=== PATIENT | female | born 2000 | race Asian ===

== ENCOUNTER 2018-12-07 21:38 | Emergency (ER) | payer SELFPAY ==
[2018-12-07 22:36] LABS: ABSOLUTE MONOCYTES (AUTO) 0.8 10^3/uL (0.1-1.4); ABSOLUTE NEUT (AUTO) 13.6 10^3/uL (1.7-8.2); BASOPHILS % (AUTO) 0.3 % (0-2); HEMATOCRIT 36.6 % (36.0-47.0); HEMOGLOBIN 11.6 g/dL (12.0-15.5); LYMPHOCYTES % (AUTO) 6.7 % (13-45); MEAN CORPUSCULAR HEMOGLOBIN 21.4 pg (27.0-33.4); MEAN CORPUSCULAR HGB CONC 31.6 g/dL (32.0-36.0); MEAN CORPUSCULAR VOLUME 68 fl (80-97); MONOCYTES % (AUTO) 5.4 % (3-13); PLATELET COUNT 248 10^3/uL (150-450); RED BLOOD COUNT 5.39 10^6/uL (3.72-5.28); SEGMENTED NEUTROPHILS % (AUTO) 87.6 % (42-78); TOTAL CELLS COUNTED % (AUTO) 100 %; WHITE BLOOD COUNT 15.5 10^3/uL (4.0-10.5)
[2018-12-07 22:41] LABS: APPEARANCE,URINE SLIGHTLY-CLOUDY; BILIRUBIN,URINE NEGATIVE (NEGATIVE); COLOR,URINE YELLOW; GLUCOSE, URINE 50 mg/dL (NEGATIVE); KETONES,URINE NEGATIVE (NEGATIVE); LEUKOCYTE ESTERASE,URINE TRACE (NEGATIVE); NITRITE,URINE NEGATIVE (NEGATIVE); PROTEIN,URINE NEGATIVE (NEGATIVE); URINE SPECIFIC GRAVITY 1.012; UROBILINOGEN,URINE NEGATIVE mg/dL (<2.0)
[2018-12-07 22:50] LABS: ALBUMIN 4.8 g/dL (3.5-5.0); ALKALINE PHOSPHATASE 73 U/L (38-126); ANION GAP 13 (5-19); ASPARTATE AMINO TRANSFERASE 30 U/L (14-36); BILIRUBIN,DIRECT 0.3 mg/dL (0.0-0.4); BILIRUBIN,TOTAL 0.9 mg/dL (0.2-1.3); BLOOD UREA NITROGEN 10 mg/dL (7-20); CALCIUM 9.9 mg/dL (8.4-10.2); CARBON DIOXIDE 20 mmol/L (22-30); CHLORIDE 103 mmol/L (98-107); GLUCOSE 120 mg/dL (75-110); POTASSIUM 3.9 mmol/L (3.6-5.0)
[2018-12-07] MEDS ORDERED: NORMAL SALINE 1000 ML 750 ML IV ONE (23:20)
[2018-12-07] MEDS ORDERED: KETOROLAC TROMETHAMINE INJ/PF 30 MG/1 ML SDV IV ONE (23:20)
[2018-12-07] MEDS ORDERED: ONDANSETRON HCL INJ/PF 4 MG/2 ML SDV IV ONE (23:20)
--- NOTE | 2018-12-07 23:59 | RADIOLOGY REPORT (SQ) ---
EXAM DESCRIPTION: XR ABDOMEN SUPINE AND ERECT WITH CHEST (ABD ACUTE SERIES) COMPLETED DATE/TME: 12/07/2018 23:19 CLINICAL HISTORY: 18 years, Female, Abdominal pain, constipation, leukocytosis, tachyc COMPARISON: EXAM DESCRIPTION: CLINICAL HISTORY: Abdominal pain, constipation, leukocytosis, tachyc COMPARISON: None FINDINGS: Frontal view of the chest and supine and upright images of the abdomen were submitted. Cardiac silhouette is within normal limits. There is no focal parenchymal or pleural disease. There is no free air in the abdomen. There is no evidence of bowel obstruction. IMPRESSION: No acute abnormalities. NUMBER OF VIEWS: TECHNIQUE: LIMITATIONS: None. FINDINGS: IMPRESSION: copyright 2010 [employer]- All Rights Reserved
[2018-12-08] MEDS ORDERED: CEFTRIAXONE 1 GM/D5W RTU 1 GM/50 ML RTUPB IV ONE (01:02)
--- NOTE | 2018-12-08 01:02 | ER Document Report ---
Entered by KYLAH MENDOZA SCRIBE 12/07/18 2315 Acting as scribe for:MICHAEL SORIANO MD ED General - General Chief Complaint: Abdominal Pain Stated Complaint: LOWER ABDOMINAL PAIN Time Seen by Provider: 12/07/18 23:01 Notes: Patient is a 18-year-old female presenting to the emergency department complaining of constipation. Patient states that she has been constipated for 3 days now. Patient states that she has been nauseous for 2 days now it has been intermittent. Patient states that she has not had a bowel movement in 2 days. Patient states that she has been experiencing burning urination that began at 2 030. Patient denies experiencing any fever. Patient states that her last menstrual period was November 11, 2018. TRAVEL OUTSIDE OF THE [place] IN LAST 30 DAYS: No - Related Data Allergies/Adverse Reactions: No Known Allergies Allergy (Verified 12/07/18 21:40) Past Medical History - General Information source: Patient - Social History Smoking Status: Never Smoker Cigarette use (# per day): No Chew tobacco use (# tins/day): No Smoking Education Provided: No Frequency of alcohol use: None Drug Abuse: None Family History: Reviewed & Not Pertinent Patient has suicidal ideation: No Patient has homicidal ideation: No Review of Systems - Review of Systems Constitutional: See HPI. denies: Fever EENT: No symptoms reported Cardiovascular: No symptoms reported Respiratory: No symptoms reported Gastrointestinal: See HPI, Nausea, Constipation Genitourinary: See HPI, Burning Female Genitourinary: No symptoms reported Musculoskeletal: No symptoms reported Skin: No symptoms reported Hematologic/Lymphatic: No symptoms reported Neurological/Psychological: No symptoms reported -: Yes All other systems reviewed and negative Physical Exam - Vital signs Vitals: Temp Pulse Resp BP Pulse Ox 99.1 F 116 H 18 117/78 100 12/07/18 22:01 12/07/18 22:01 12/07/18 22:01 12/07/18 22:01 12/07/18 22:01 - Notes Notes: PHYSICAL EXAMINATION: GENERAL: Well-appearing, well-nourished and in no acute distress. HEAD: Atraumatic, normocephalic. EYES: Pupils equal round and reactive to light, extraocular movements intact, sclera anicteric, conjunctiva are normal. ENT: nares patent, oropharynx clear without exudates. Moist mucous membranes. NECK: Normal range of motion, supple without lymphadenopathy LUNGS: Breath sounds clear to auscultation bilaterally and equal. No wheezes rales or rhonchi. HEART: Regular tachycardic rate without murmurs ABDOMEN: Sounds are decreased. Patient seems to be guarding. Percussion dull in the lower abdomen. Most tender across lower abdomen. RECTAL: Anal exam shows the patient has anal fissures, area is quite tender to p alpate, this appears to be what she is referring to as pain when she sits or moves. PELVIC: Pelvic exam shows normal external genitalia. Speculum exam shows mucopurulent discharge from the cervix. Cervix appears to be friable. Bimanual exam shows the uterus is exquisitely tender to palpate. Lateral adnexal tenderness. EXTREMITIES: Normal range of motion, no pitting or edema. No cyanosis. NEUROLOGICAL: Cranial nerves grossly intact. Normal speech, normal gait. Normal sensory, motor, and reflex exams. PSYCH: Normal mood, normal affect. SKIN: Warm, Dry, normal turgor, no rashes or lesions noted. Course - Vital Signs Vital signs: Temp Pulse Resp BP Pulse Ox 98.6 F 89 16 109/65 99 12/08/18 02:52 12/08/18 02:52 12/08/18 02:52 12/08/18 02:52 12/08/18 02:52 - Laboratory Result Diagrams: 12/07/18 22:20 12/07/18 22:20 Laboratory results interpreted by me: 12/07/18 12/07/18 12/07/18 22:20 22:20 22:20 WBC 15.5 H RBC 5.39 H Hgb 11.6 L MCV 68 L MCH 21.4 L MCHC 31.6 L RDW 15.0 H Seg Neutrophils % 87.6 H Lymphocytes % 6.7 L Absolute Neutrophils 13.6 H Sodium 135.5 L Carbon Dioxide 20 L Glucose 120 H Urine Glucose (UA) 50 H Ur Leukocyte Esterase TRACE H - Diagnostic Test Radiology reviewed: Image reviewed, Reports reviewed - Acute abdominal series shows a lot of stool and gas with no acute abnormalities. CT scan of the abdomen pelvis with oral and IV contrast shows large amount of stool in the colon, particularly in the rectal vault. It does suggest constipation and proctitis. There is no inflammation in the region of the appendix, although the appendix is not visualized. Discharge - Discharge Clinical Impression: PID (acute pelvic inflammatory disease), Anal fissure, unspecified, Proctitis Leukocytosis Qualifiers: Leukocytosis type: unspecified Qualified Code(s): D72.829 - Elevated white blood cell count, unspecified Constipation Qualifiers: Constipation type: unspecified constipation type Qualified Code(s): K59.00 - Constipation, unspecified Condition: Stable Disposition: HOME, SELF-CARE Additional Instructions: Pelvic Inflammatory Disease: You have been diagnosed as having pelvic inflammatory disease (PID). This is an infection of the fallopian tubes and surrounding areas of the pelvis. Symptoms are usually pelvic pain and discharge. The infection can do permanent damage to the tubes and ovaries. It should be taken very seriously. Treatment is antibiotics, which may be given by vein or by injection if the infection seems serious. It's important that you receive all recommended medication. Anal Fissure: You have a split in the tissues of the anus, called an anal fissure. This may be due to constipation, or chronic anal irritation. The fissure causes pain during bowel movements. It may bleed when you pass stool. Treat the fissure with warm sitz baths three or four times a day. Clean the anal area carefully -- special cleansing pads (Tucks) may be helpful. Sometimes prescription suppositories are helpful in reducing pain and inflammation. A stool softener (such as Metamucil) will make bowel movements less traumatic. Eat a diet high in fiber (fruits, whole grains), and drink plenty of water. See your doctor if there is profuse bleeding, increasing pain, an enlarging mass, or fever -- or if the symptoms do not resolve after treatment. Proctitis: Proctitis is inflammation of the inner lining of the rectum. It can be quite painful, particularly as hard stool passes through. Constipation: Constipation is a common problem. It is especially likely as you get older. Constipation is a common cause of abdominal pain, but sometimes causes no symptoms at all. Causes of constipation include certain medications, dehydration, diets, inactivity, and low-fiber intake. Rarely, it can be a symptom of underlying disease. The physician has evaluated you for this. Your constipation is probably due to the inflammation in your rectum. Avoid constipation by eating a diet high in fiber, fruits, and vegetables. Drink plenty of liquids. Stool softeners may be needed for difficult cases. Laxatives are useful for occasional constipation. You should use them only w hen necessary. Too-frequent use can make your bowels dependent on them. Some over the counter laxatives available without prescription are: Milk of Magnesia, 1-2 tablespoons twice a day Dulcolax, 5 mg pill or 10 mg suppository. Citrate of Magnesia, 4-5 ounces a day for a day or two For acute constipation, [employer] and Dulcolax suppositories are helpful. You should call your doctor or return for re-evaluation if you pass blood in the stool, or if you develop fever or increasing abdominal pain. Take the doxycycline as prescribed. Use the lidocaine cream as prescribed to help relieve the pain in your anal region. Use the nitroglycerin ointment prescribed in the anal region to improve blood flow. Take your prescription to Drs. Leatha quiroga or Eduardo Barakat on [facility] to have the nitroglycerin ointment compounded. Drink 5 ounces of citrate of magnesia/magnesium citrate to start relieving the constipation. Be sure to drink lots of fluids throughout the day in the evening every day to help relieve and prevent constipation. Take a stool softener every day such as a Dulcolax pill. Take Tylenol and ibuprofen for pain as needed. Follow-up with [facility] if not improving. RETURN TO THE EMERGENCY ROOM IF ANY NEW OR WORSENING SYMPTOMS. Prescriptions: Doxycycline Hyclate 100 mg PO BID #14 tablet. Lidocaine Cream 5% 1 dose AR QID PRN #20 gm PRN Reason: For Pain Nitroglycerine 0.2% 1 applic AR BID #20 gm Scribe Attestation: 12/07/18 23:57 I personally performed the services described in the documentation, reviewed and edited the documentation which was dictated to the scribe in my presence, and it accurately records my words and actions. I personally performed the services described in the documentation, reviewed and edited the documentation which was dictated to the scribe in my presence, and it accurately records my words and actions.
[2018-12-08] MEDS ORDERED: MORPHINE SULFATE 10 MG/ML INJ IV ONE (01:03)
[2018-12-08] MEDS ORDERED: ONDANSETRON HCL INJ/PF 4 MG/2 ML SDV IV ONE (01:04)
[2018-12-08 01:22] LABS: RBCS (WET MOUNT) NO RBCS SEEN; T.VAGINALIS (WET MOUNT) NO TRICHOMONAS SEEN; WBCS (WET MOUNT) RARE WBCS SEEN; YEAST (WET MOUNT) NO YEAST SEEN
[2018-12-08] MEDS ORDERED: CEFTRIAXONE INJ 1000 MG VIAL ONE (01:33)
[2018-12-08 02:53] LABS: CHLAM PCR NOT DETECTED (NOT DETECT)
--- NOTE | 2018-12-08 03:05 | RADIOLOGY REPORT (SQ) ---
EXAM DESCRIPTION: US PELVIS TRANSVAGINAL COMPLETED DATE/TME: 12/08/2018 02:01 CLINICAL HISTORY: 18 years, Female, pelvic pain, leukocytosis COMPARISON: None. TECHNIQUE: Emergent pelvic ultrasound LIMITATIONS: None. FINDINGS: The uterus measures 6.3 x 4.9 x 3.5 cm. The endometrium measures 13 mm in thickness. The myometrium is homogenous. Right ovary measures 2.6 x 1.4 x 2.0 cm, the left 3.4 x 2.4 x 2.1 cm. Normal flow to each ovary. Simple left ovarian cyst measuring 2.2 x 2.0 cm. No solid adnexal mass or free fluid IMPRESSION: Simple left ovarian cyst likely a dominant follicle. This measures 2.2 cm and does not require follow-up. Remainder unremarkable copyright 2011 [employer]- All Rights Reserved
--- NOTE | 2018-12-08 06:20 | RADIOLOGY REPORT (SQ) ---
EXAM DESCRIPTION: CT ABDOMEN PELVIS WITH IV CONTRAST COMPLETED DATE/TME: 12/08/2018 03:26 CLINICAL HISTORY: 18 years, Female, Pelvic pain, leukocytosis COMPARISON: Ultrasound from today's date TECHNIQUE: 440 Images stored on PACS. All CT scanners at this facility use dose modulation, iterative reconstruction, and/or weight based dosing when appropriate to reduce radiation dose to as low as reasonably achievable (ALARA). [facility]: Dose Right [facility]: CareDose [facility]: Dose Right [facility]: Teradose 4D [facility]: [employer] LIMITATIONS: None. FINDINGS: Visualized lung bases are unremarkable. Osseous structures are grossly intact. The liver, spleen, adrenal glands, pancreas, kidneys are unremarkable. The gallbladder is present. No evidence for bowel obstruction. Large amount of stool in the colon. There is an excessive amount of stool in the rectal vault with minor surrounding inflammation consistent with proctitis. Probable follicular change to the ovaries, as described on ultrasound. The appendix is not well seen however there is no pericecal inflammation to suggest acute appendicitis. IMPRESSION: Large amount of stool in the colon and in particular the rectal vault, suggesting constipation and proctitis. TECHNICAL DOCUMENTATION: Quality ID # [id number]: Final reports with documentation of one or more dose reduction techniques (e.g., Automated exposure control, adjustment of the mA and/or kV according to patient size, use of iterative reconstruction technique) copyright 2011 [employer]- All Rights Reserved
[2018-12-08 08:10] VITALS: BP 116/68
== END 2018-12-08 08:10 | disposition home or self-care (01) ==
LOC: ER 21:38
DX: K59.00 Constipation, unspecified (principal); N73.9 Female pelvic inflammatory disease, unspecified; K60.2 Anal fissure, unspecified; K62.89 Other specified diseases of anus and rectum; D72.829 Elevated white blood cell count, unspecified; R11.0 Nausea; R30.0 Dysuria
CPT/HCPCS: 96376; 99284; 96361; 96375; 96365; 36415; 87210; 83690; 85025; 81025; 80053; 81001; 87491; 87591; 74022; 76830; 74177; J1885; J2270; J2405 ×2; J7030; J0696